=== PATIENT | male | born 1950 | race Caucasian/White ===

== ENCOUNTER → 2019-02-01 | Outpatient (CLI) | payer MEDICARE ==
[~2019-02-01] MED LIST: REGADENOSON 0.4 MG/5 ML DISP.SYRIN. IV ONE
--- NOTE | 2019-02-01 10:54 | PCVCIMAG ---
APPROVED REPORT Study performed: 02/01/2019 08:41:50 EXAM: Comprehensive 2D, Doppler, and color-flow Echocardiogram Patient Location: Echo lab Room #: 1Status: routine BSA: 2.13 HR: 113 bpmBP: 138/74 mmHg Rhythm: Atrial Fibrillation Other Information Study Quality: Adequate Risk Factors: Cardiac Risk Factors: HTN, Hyperlipidemia Indications Atrial Fibrillation Hypertension/HDD 2D Dimensions IVSd: 12.48 (7-11mm)LVOT Diam: 20.00 (18-24mm) LVDd: 46.34 mm PWd: 11.70 (7-11mm) LVDs: 29.53 (25-40mm) Left Atrium: 40.05 (27-40mm) Aortic Root: 28.25 mm LV Single Plane 4CH: 56.07 % LV Single Plane 2CH: 56.77 % Biplane EF: 54.9 % Volumes Left Atrial Volume (Systole) Single Plane 4CH: 107.61 mLSingle Plane 2CH: 109.15 mL LA ESV Index: 52.00 mL/m2 Aortic Valve AoV Peak John.: 1.33 m/s AO Peak Gr.: 8.22 mmHgLVOT Max P.55 mmHg LVOT Max V: 1.16 m/s RO Vmax: 2.83 cm2 Pulmonary Valve PV Peak John.: 1.13 m/sPV Peak Gr.: 5.09 mmHg Tricuspid Valve TR Peak John.: 2.69 m/sRAP Estimate: 7.00 mmHg TR Peak Gr.: 35.16 mmHg PA Pressure: 42.00 mmHg Left Ventricle The left ventricle is normal size. There is normal LV segmental wall motion. Borderline concentric left ventricular hypertrophy. Left ventricular systolic function is normal. The left ventricular ejection fraction is within the normal range. LVEF is 55-60%. This study is not technically sufficient to allow evaluation of the LV diastolic function due to atrial fibrillation. Right Ventricle The right ventricle is normal size. The right ventricular systolic function is normal. Atria Left atrium is severely dilated. Right atrium is dilated. Aortic Valve The aortic valve is normal in structure. No aortic regurgitation is present. There is no aortic valvular stenosis. Mitral Valve There is mitral annular calcification. Mild mitral regurgitation. No evidence of mitral valve stenosis. Tricuspid Valve The tricuspid valve is normal in structure. Mild tricuspid regurgitation. Pulmonary artery pressure is 42 mmHg. Pulmonic Valve The pulmonary valve is normal in structure. Trace pulmonic regurgitation. Great Vessels The aortic root is normal in size. The ascending aorta is normal in size. IVC is normal in size and collapses >50% with inspiration. Pericardium There is no pericardial effusion. <Conclusion> The left ventricle is normal size. LVEF is 55-60%. This study is not technically sufficient to allow evaluation of the LV diastolic function due to atrial fibrillation. The right ventricle is normal size. Left atrium is severely dilated. Right atrium is dilated. The aortic valve is normal in structure. Mild mitral regurgitation. Mild tricuspid regurgitation. Pulmonary artery pressure is 42 mmHg. The aortic root is normal in size. There is no pericardial effusion.
--- NOTE | 2019-02-02 12:18 | PCVCIMAG ---
APPROVED REPORT Imaging Protocol: Rest Tc-99m/Stress Tc-99m 1 day Study performed: 02/01/2019 09:10:09 Indication: Atrial Fibrillation Patient Location: Out-Patient Stress Nurse: Camryn Fong RN, Clare Jenkins RN [place] Tech:Kiah María [facility] Ht: 5 ft 11 in Wt: 205 lbs BSA: 2.13 m2 HR: 105 bpm BP: 140/96 mmHg BMI: 28.5 Rhythm: Atrial Fibrillation, nonspecific ST-T abnormalities, RVR Medical History Medical History: Atrial Fibrillation, Hyperlipidemia, HTN, Former Smoker Medications: Metoprolol, Flecainide, Eliquis, Lotrel, Hydralazine, Atorvastatin Allergies: No known drug allergies Cardiac Risk Factors: Age Pretest Chest Pain Characteristics: No chest pain Meds Held (24 hrs): Metoprolol, Flecainide, Eliquis, Lotrel, Hydralazine, Atorvastatin Resting Data Rest SPECT myocardial perfusion imaging was performed in supine position 45 minutes following the intravenous injection of 10.6 mCi of Tc-99m Sestamibi. Time of rest injection: 909 Date: 02/01/2019 Administration Route: IV Administration Site: Right AC Pharmacologic Stress Pharmacologic stress test was performed by injecting Regadenoson 0.4 mg IV push over 10-15 seconds immediately followed by the intravenous injection of 35.2 mCi of Tc-99m Sestamibi. Time of stress injection: 1015 Date: 02/01/2019 Administration Route: IV Administration Site: Right AC Gated Stress SPECT was performed 45 minutes after stress injection. The images were gated to evaluate regional wall motion and calculate left ventricular ejection fraction. Stress Test Details Stress Test: Pharmacologic stress testing performed using 0.4 mg of regadenoson per 5 mL given IV over 10 seconds. Reason for pharmacologic stress test: physical limitation, tachycardia. HRMax Heart Rate (APMHR): 153 bpm Resting HR: 105 bpmTarget HR (85% APMHR): 130 bpm Max HR Achieved: 131 bpm % of APMHR: 85 Recovery HR: 108 bpm BP Resting BP: 140/96 mmHg Max BP: 164/90 mmHg Recovery BP: 171/81 mmHg ECG Resting ECG: Atrial Fibrillation, nonspecific ST-T abnormalities, RVR Stress ECG: Atrial Fibrillation, nonspecific ST-T abnormalities, RVR Arrhythmia: None Recovery ECG: Atrial Fibrillation, nonspecific ST-T abnormalities, RVR Clinical Reason for Termination: Completed protocol Stress Symptoms: Dyspnea, Lightheaded Symptoms resolved with caffeine. Stress ECG Conclusion ECG: Non-ischemic Study Quality Study: Good Study Data Post stress, the left ventricular ejection was 65%.. SSS: 0 SRS: 0 SDS: 0 TID = 0.82. Perfusion No evidence of stress induced ischemia or prior myocardial infarction. Wall Motion Normal left ventricular size and function with no regional wall motion abnormalities. Nuclear Conclusion No evidence of stress induced ischemia or prior myocardial infarction. Normal left ventricular size and function with no regional wall motion abnormalities. Post stress, the left ventricular ejection was 65%. No prior study available for comparison. Interpreted by: Vik Dooley MD Electronically Approved: 02/02/2019 00:56:08 <Conclusion> ECG: Non-ischemic
== END | disposition home or self-care (01) ==
LOC: PCVCIMAG 08:52
PROVIDERS: ATTEND Internal Medicine Cardiovascular Disease
DX: I08.1 Rheumatic disorders of both mitral and tricuspid valves (principal); I48.91 Unspecified atrial fibrillation; R07.9 Chest pain, unspecified; R53.83 Other fatigue; I25.118 Atherosclerotic heart disease of native coronary artery with other forms of angina pectoris; I42.9 Cardiomyopathy, unspecified; E78.5 Hyperlipidemia, unspecified; I10 Essential (primary) hypertension; Z87.891 Personal history of nicotine dependence
CPT/HCPCS: 78452; 93017; 93306; A9500; J2785